=== PATIENT | female | born 1955 | race Caucasian/White ===

== ENCOUNTER 2023-03-18 10:05 | Emergency (ER) | payer OTHER ==
[~2023-03-18] VITALS: Ht 162.6 cm; Wt 55.8 kg
[2023-03-18 10:18] VITALS: BP_SYST 127; PULSE 63; RESP 18; TEMP 98.1; O2SAT 99
[2023-03-18 11:27] LABS: BASOPHILS % (AUTO) 0.6 % (0.0-2.0); EOSINOPHILS % (AUTO) 0.5 % (0.0-4.0); HEMATOCRIT 44.4 % (36-48); HEMOGLOBIN 15.1 g/dL (12.0-16.0); LYMPHOCYTES % (AUTO) 11.1 % (20.5-51.5); MEAN CORPUSCULAR HEMOGLOBIN 31 pg (27-31); MEAN CORPUSCULAR HGB CONC 34 % (32-36); MEAN CORPUSCULAR VOLUME 92 fL (79.0-98.0); MONOCYTES # (AUTO) 0.6 K/uL (0.0-1.0); MONOCYTES % (AUTO) 7.1 % (1.7-9.3); NEUTROPHILS # (AUTO) 7.1 K/uL (1.8-7.7); NEUTROPHILS % (AUTO) 80.7 % (40.0-70.0); PLATELET COUNT (AUTO) 414 K/uL (130-430); RED BLOOD CELL COUNT(AUTO) 4.84 MIL/uL (4.2-6.2); RED CELL DISTRIBUTION WIDTH 13.4 % (9.0-15.0); WHITE BLOOD COUNT (AUTO) 8.8 K/uL (4.8-10.8)
[2023-03-18 11:28] LABS: CALCIUM 9.4 mg/dL (8.4-11.0); CREATININE 0.77 mg/dL (0.55-1.30)
[2023-03-18 11:33] LABS: TOTAL BILIRUBIN 1.4 mg/dL (0.0-1.0)
[2023-03-18] MEDS ORDERED: KETOROLAC TROMETHAMINE 15 MG VIAL IM ONE (12:15)
[2023-03-18 12:42] LABS: BILIRUBIN,URINE NEGATIVE (NEGATIVE); BLOOD, URINE NEGATIVE (NEGATIVE); CLARITY/URINE CLEAR (CLEAR); COLOR,URINE YELLOW (YELLOW); GLUCOSE,URINE NEGATIVE (NEGATIVE); KETONES,URINE NEGATIVE (NEGATIVE); LEUKOCYTE ESTERASE ,URINE NEGATIVE (NEGATIVE); NITRITE, URINE NEGATIVE (NEGATIVE); PROTEIN URINE NEGATIVE (NEGATIVE); UROBILINOGEN,URINE 0.2 (0.2-1.0)
[2023-03-18] MEDS ORDERED: MAG HYDROX/AL HYDROX/SIMETH 30 ML, DICYCLOMINE HCL 20 MG, LIDOCAINE VISCOUS 2% 15ML (PO... PO ONE ×3 (13:15)
[2023-03-18] MEDS ORDERED: SUCR1TAB2 PO (13:28)
[2023-03-18] MEDS ORDERED: FAMO20TA8 PO (13:28)
[2023-03-18] MEDS ORDERED: SIME80TA15 PO (13:28)
[2023-03-18] MEDS ORDERED: MAG-AL HYDROX/SIMETH 30 ML UDC ONE (13:46)
[2023-03-18] MEDS ORDERED: DICYCLOMINE HCL 10 MG/5 ML SOLUTION ONE (13:46)
[2023-03-18 14:22] VITALS: BP_SYST 128; PULSE 65; RESP 18; TEMP 97.7; O2SAT 97
== END 2023-03-18 14:24 | disposition home or self-care (01) ==
LOC: SED 10:05
DX: R14.1 Gas pain (principal); R91.1 Solitary pulmonary nodule; K76.0 Fatty (change of) liver, not elsewhere classified; K59.00 Constipation, unspecified; R10.84 Generalized abdominal pain; Z79.899 Other long term (current) drug therapy
CPT/HCPCS: 99285; 74176; 80053; 83690; 85025; 36415; 76376; 96372; 81003; J1885

== ENCOUNTER 2023-07-19 10:07 | Emergency (ER) | payer OTHER ==
[~2023-07-19] VITALS: Ht 162.6 cm; Wt 53.1 kg
[~2023-07-19 10:07] MED LIST: FAMO20TA8 PO; SIME80TA15 PO; SUCR1TAB2 PO
[2023-07-19] MEDS ORDERED: ASPI-524 PO (10:15)
[2023-07-19] MEDS ORDERED: METF-379 PO (10:15)
[2023-07-19] MEDS ORDERED: AMLO5TAB92 PO (10:15)
[2023-07-19] MEDS ORDERED: HYDR25TA4 PO (10:15)
[2023-07-19] MEDS ORDERED: IBAN150T21 PO (10:15)
[2023-07-19] MEDS ORDERED: OMEP-268 PO (10:15)
[2023-07-19] MEDS ORDERED: PRAV40TA63 PO (10:15)
[2023-07-19 10:16] VITALS: BP_SYST 170; PULSE 86; RESP 18; TEMP 97.7; O2SAT 99
[2023-07-19 10:48] LABS: BILIRUBIN,URINE NEGATIVE (NEGATIVE); BLOOD, URINE 3+ (NEGATIVE); CLARITY/URINE CLOUDY (CLEAR); COLOR,URINE YELLOW (YELLOW); GLUCOSE,URINE NEGATIVE (NEGATIVE); KETONES,URINE NEGATIVE (NEGATIVE); LEUKOCYTE ESTERASE ,URINE 3+ (NEGATIVE); NITRITE, URINE NEGATIVE (NEGATIVE); PROTEIN URINE TRACE (NEGATIVE); UROBILINOGEN,URINE 0.2 (0.2-1.0)
[2023-07-19 11:15] LABS: BACTERIA,URINE RARE /HPF (None Seen)
[2023-07-19] MEDS ORDERED: CEPH250C PO (11:45)
[2023-07-19 12:06] VITALS: BP_SYST 170; PULSE 86; RESP 18; TEMP 97.7; O2SAT 99
[2023-07-19] MEDS ORDERED: ACETAMINOPHEN 500 MG TABLET ONE (14:03)
== END 2023-07-19 12:01 | disposition home or self-care (01) ==
LOC: SED 10:07
DX: N30.91 Cystitis, unspecified with hematuria (principal); Z79.899 Other long term (current) drug therapy
CPT/HCPCS: 81000; 81001; 81015; 87086; 99283

== ENCOUNTER 2023-09-16 20:53 | Emergency (ER) | payer OTHER ==
[~2023-09-16] VITALS: Ht 162.6 cm; Wt 55.3 kg
[~2023-09-16 20:53] MED LIST changes: +AMLO5TAB92 PO; +ASPI-524 PO; +CEPH250C PO; +HYDR25TA4 PO; +IBAN150T21 PO; +METF-379 PO; +OMEP-268 PO; +PRAV40TA63 PO
[2023-09-16 21:04] VITALS: BP_SYST 140; PULSE 73; RESP 20; TEMP 97.8; O2SAT 96
[2023-09-16] MEDS ORDERED: NEOSEYEO OP ×2 (21:26→21:56)
[2023-09-16 21:30] VITALS: BP_SYST 140; PULSE 73; RESP 20; TEMP 97.8; O2SAT 96
== END 2023-09-16 21:30 | disposition home or self-care (01) ==
LOC: SED 20:53
DX: S05.8X2A Other injuries of left eye and orbit, initial encounter (principal); Z79.899 Other long term (current) drug therapy; X58.XXXA Exposure to other specified factors, initial encounter; Y93.89 Activity, other specified; Y92.89 Other specified places as the place of occurrence of the external cause; Y99.8 Other external cause status
CPT/HCPCS: 99283

== ENCOUNTER 2024-01-25 14:39 | Emergency (ER) | payer OTHER ==
[~2024-01-25] VITALS: Ht 162.6 cm; Wt 49.9 kg
[~2024-01-25 14:39] MED LIST changes: +NEOSEYEO OP
[2024-01-25 15:24] VITALS: BP_SYST 140; PULSE 80; RESP 16; TEMP 97.6; O2SAT 98
[2024-01-25 16:05] LABS: BILIRUBIN,URINE NEGATIVE (NEGATIVE); BLOOD, URINE NEGATIVE (NEGATIVE); CLARITY/URINE CLEAR (CLEAR); COLOR,URINE YELLOW (YELLOW); GLUCOSE,URINE NEGATIVE (NEGATIVE); KETONES,URINE NEGATIVE (NEGATIVE); LEUKOCYTE ESTERASE ,URINE NEGATIVE (NEGATIVE); NITRITE, URINE NEGATIVE (NEGATIVE); PROTEIN URINE NEGATIVE (NEGATIVE); UROBILINOGEN,URINE 0.2 (0.2-1.0)
[2024-01-25 16:12] LABS: BASOPHILS # (AUTO) 0.1 K/uL (0.0-0.2); BASOPHILS % (AUTO) 0.7 % (0.0-2.0); EOSINOPHILS # (AUTO) 0.1 K/uL (0.0-0.4); EOSINOPHILS % (AUTO) 1.1 % (0.0-4.0); HEMATOCRIT 39.8 % (36-48); HEMOGLOBIN 13.9 g/dL (12.0-16.0); LYMPHOCYTES # (AUTO) 1.5 K/uL (1.0-5.5); LYMPHOCYTES % (AUTO) 20.1 % (20.5-51.5); MEAN CORPUSCULAR HEMOGLOBIN 32 pg (27-31); MEAN CORPUSCULAR HGB CONC 35 % (32-36); MEAN CORPUSCULAR VOLUME 90 fL (79.0-98.0); MONOCYTES # (AUTO) 0.6 K/uL (0.0-1.0); MONOCYTES % (AUTO) 7.5 % (1.7-9.3); NEUTROPHILS # (AUTO) 5.4 K/uL (1.8-7.7); NEUTROPHILS % (AUTO) 70.6 % (40.0-70.0); PLATELET COUNT (AUTO) 419 K/uL (130-430); RED CELL DISTRIBUTION WIDTH 13.6 % (9.0-15.0); WHITE BLOOD COUNT (AUTO) 7.7 K/uL (4.8-10.8)
[2024-01-25 16:24] LABS: INR 0.9 (0.8-1.2); PROTHROMBIN TIME 9.6 SECS (9.5-12.5)
[2024-01-25 16:36] LABS: ALBUMIN 3.9 g/dL (3.4-4.8); BILIRUBIN,DIRECT 0.2 mg/dL (0.0-0.3); CALCIUM 9.3 mg/dL (8.4-11.0); CREATININE 0.85 mg/dL (0.55-1.30); POTASSIUM 3.9 mmol/L (3.5-5.1); TOTAL PROTEIN, SERUM 7.6 g/dL (6.4-8.3)
[2024-01-25 18:06] VITALS: BP_SYST 140; PULSE 80; RESP 16; TEMP 97.6; O2SAT 98
== END 2024-01-25 18:05 | disposition home or self-care (01) ==
LOC: SED 14:39
DX: R10.30 Lower abdominal pain, unspecified (principal); E87.1 Hypo-osmolality and hyponatremia; Z79.899 Other long term (current) drug therapy; Z79.2 Long term (current) use of antibiotics
CPT/HCPCS: 36415; 80048; 80076; 81001; 81003; 82150; 83605; 83690; 85025; 85610; 85730; 99284